=== PATIENT | male | born 2000 | race Caucasian/White ===

== ENCOUNTER 2020-10-27 16:15 | Emergency (ER) | payer BC, SELFPAY ==
--- NOTE | ~2020-10-27 | XR_ITS ---
EXAMINATION: XR ANKLE, RIGHT CLINICAL INFORMATION: Swelling COMPARISON: None TECHNIQUE: 3 views of the right ankle. FINDINGS: There is soft tissue swelling at the lateral malleolus. There is no fracture. No dislocation. The ankle mortise is congruent. XR/XR ankle RT min 3V IMPRESSION: Soft tissue swelling at lateral malleolus. There is no acute osseous abnormality.
[2020-10-27 16:26] VITALS: BP 139/78; PULSE 90; RESP 18; TEMP 36.3; O2SAT 98; BMI 28.5
--- NOTE | 2020-10-27 18:11 | ED_ITS ---
HPI - Extremity Injury (Lower) General Chief Complaint: Extremity Injury, Lower Stated Complaint: ankle injury Source: patient Mode of arrival: ambulatory Limitations: no limitations History of Present Illness HPI Narrative: Patient presents to ED right ankle pain since this morning. Patient states he was going down the stairs this morning and on the last step he lost his footing and rolled his right ankle. Patient denies falling to the ground. Patient denies hearing any popping sounds in ankle/foot. Patient denies any foot pain. Patient states pain is only in the right lateral side of ankle. Related Data Previous Rx's Medication Instructions Recorded cyclobenzaprine 10 mg PO TID PRN #15 tab 10/27/20 naproxen 500 mg PO BID PRN #20 tab 10/27/20 Allergies Allergy/AdvReac Type Severity Reaction Status Date / Time No Known Allergies Allergy Verified 10/27/20 16:26 [No Known Allergies*] Review of Systems Review of Systems: Yes all other systems are reviewed and are negative Constitutional: Constitutional: Reports as per HPI and Reports no additional constitutional complaints Eyes: Eyes: Reports as per HPI and Reports no additional eye complaints ENT: Reports system reviewed and no additional complaints, except as documented and Reports as per HPI Cardiovascular: Cardiovascular: Reports as per HPI and Reports no additional cardiovascular complaints Respiratory: Respiratory: Reports as per HPI and Reports no additional respiratory complaints Gastrointestinal: Gastrointestinal: Reports as per HPI and Reports no additional gastrointestinal complaints Genitourinary: Genitourinary: Reports no additional male genitourinary complaints and Reports as per HPI Musculoskeletal: Musculoskeletal: Reports no additional musculoskeletal complaints, Reports as per HPI and Reports arthralgias Comments: Right ankle Neurologic: Reports system reviewed and no additional complaints, except as documented and Reports as per HPI Psychiatric: Psychiatric: Reports no additional psychiatric complaints and Reports as per HPI [facility] Past Medical History Medical History (Updated 10/27/20 @ 18:28 by LIANET Miranda) Patient denies medical problems Family History Family History (Updated 08/06/20 @ 11:49 by Rei Whitlock PA-C) Father DMII (diabetes mellitus, type 2) Social History Social History (Updated 08/06/20 @ 11:50 by Rei Whitlock PA-C) Alcohol intake: current Smoking Status: Former smoker Advance Directives: No Advance Directives Information Provided: Yes Physical Exam Vital Signs: Vital Signs: Last Vital Signs Temp 97.3 F 10/27/20 16:26 Pulse 90 10/27/20 16:26 Resp 18 10/27/20 16:26 BP 139/78 10/27/20 16:26 Pulse Ox 98 10/27/20 16:26 Body Mass Index 28.5 Const: General: cooperative, healthy appearing, comfortable, no acute distress, well developed, alert, awake and Physically active Orientation/consciousness: patient oriented x3 HENMT: Head: Yes normal to inspection, Yes No palpable skull fracture present, Yes normocephalic, Yes atraumatic and No abrasion Eyes: General: appearance normal, both eyes and all related structures Neck: Neck: Yes normal visual inspection, Yes full ROM, Yes no lymphadenopathy, Yes no meningeal signs, Yes trachea midline, Yes supple and No tender Chest: Chest palpation & inspection: normal inspection of the chest and normal palpation of entire chest wall Resp: Effort & Inspection: normal respiratory effort and able to speak in complete sentences Auscultation: clear to auscultation bilaterally Cardio: Jugular venous distension: no JVD Heart sounds: S1 normal heart sound present and S2 normal heart sound present GI: Inspection: Yes normal to inspection and No abdominal wall ecchymosis Palpation (GI): Soft to palpation, not firm, nontender, no guarding and not rigid : General: No CVA tenderness and Yes no CVA tenderness Back/Spine/Pelvis: Back: no CVA tenderness, No CVA tenderness and No back tenderness Skin: General skin exam: no rashes or lesions noted and elasticity normal Neuro: General: patient oriented x3, no meningeal signs and CN's II-XI intact bilaterally Cranial nerves: Yes CN's II-XII intact bilaterally Extrem: Other: Right lower extremity: Negative for any deformity/tenderness/crepitus/ecchymosis of right thigh/knee/leg/foot. Positive for tenderness and slight swelling on right lateral malleolus. Negative for any redness or feet. Palpable pulses of feet. Left lower extremity normal. All extremities motor/neuro/vascular exam intact. Patient has normal gait Psych: Appearance: grossly normal, well kempt and not disheveled Course Course Course Narrative: Patient has normal gait and not any distress. Patient ordered for right x-ray per triage nurse. Reevaluation(s) Reevaluation #1: right ankle x-ray negative for any fracture. No foot x-ray was ordered. Patient does not have any right foot pain, crepitus, tenderness, ecchymosis, or deformities. Time: 18:27 MDM - Extremity Injury (Lower) MDM Narrative Medical decision making narrative: Ankle sprain Discharge Plan Discharge Clinical Impression: Ankle sprain and strain Patient Disposition: Home, Self-Care Instructions: Ankle Sprain (ED) Additional Instructions: Return to the ED for worsening pain, swelling, redness, numbness/tingling, inability to walk, numbness, bluish black discoloration of lower extremity, chest pain, shortness of breath, or any other concerning symptoms. Prescriptions: New naproxen 500 mg tablet 500 mg PO BID PRN (Reason: pain) Qty: 20 RF: 0 cyclobenzaprine 10 mg tablet 10 mg PO TID PRN (Reason: pain) Qty: 15 RF: 0 Referrals: Rei Whitlock PA-C [Primary Care Provider] - 2 days (Right ankle sprain) Interventions: ED Discharge Assessment Last Done: 10/27/20 18:37 Discharge Date/Time: 10/27/20 18:39 Print Language: Par[place]ayan
== END 2020-10-27 18:39 | disposition home or self-care (01) ==
PROVIDERS: Emergency Provider Emergency Medicine; PCP Physician Assistant
DX: S93.401A Sprain of unspecified ligament of right ankle, initial encounter (principal); M25.571 Pain in right ankle and joints of right foot; W10.9XXA Fall (on) (from) unspecified stairs and steps, initial encounter; Y93.9 Activity, unspecified; Y92.9 Unspecified place or not applicable; Y99.9 Unspecified external cause status; Z79.899 Other long term (current) drug therapy; Z87.891 Personal history of nicotine dependence
CPT/HCPCS: 73610; 99283

== ENCOUNTER 2022-09-03 03:50 | Inpatient (IN) | payer OTHER, SELFPAY ==
[2022-09-03] VITALS (14 sets, daily range): BP systolic 100–138; BP diastolic 47–83; PULSE 46–83; RESP 15–18; TEMP 36.1–36.8; O2SAT 95–100; BMI 27.8
--- NOTE | ~2022-09-03 | CT_ITS ---
EXAMINATION: CT ABDOMEN AND PELVIS WITHOUT CONTRAST CLINICAL INFORMATION: Left flank pain COMPARISON: None TECHNIQUE: Multidetector volumetric imaging was performed from the superior aspect of the liver through the pubic symphysis. Sagittal and coronal reformatted images were obtained on the technologist's workstation. This CT examination was performed using dose optimization techniques as appropriate, variously including the following: *Automated exposure control *Adjustment of mA and/or kV according to patient size (this includes techniques or standardized protocols for targeted exams where dose is matched to indication/reason for exam; i.e. extremities or head) *Use of iterative reconstruction technique DLP: 634 mGy-cm FINDINGS: LUNG BASES: The visualized lung bases are unremarkable. LIVER, GALLBLADDER, AND BILIARY TREE: The liver is normal in size, shape, and attenuation. No focal hepatic lesion or biliary ductal dilatation is present. The gallbladder is unremarkable with no evidence of radiopaque gallstones, gallbladder wall thickening, or obvious pericholecystic inflammatory changes. PANCREAS: Unremarkable. SPLEEN: Unremarkable. ADRENAL GLANDS: Unremarkable. KIDNEYS AND URETERS: The kidneys are normal in size, shape, and attenuation. Mild left hydroureteronephrosis. Ovoid 0.8 cm calculus measuring 993 Hounsfield units is seen at the mid to distal ureter at the pelvic inlet. Nonobstructing 0.2 cm left mid to upper pole calculus is 8 cm from the posterior axillary line. BLADDER: Partially distended without wall thickening. GASTROINTESTINAL TRACT: The stomach is unremarkable. Normal caliber small bowel. No obstruction. No colonic wall thickening or inflammation. Normal appendix. No free air or free fluid. ABDOMINAL WALL: No significant hernia is appreciated. LYMPH NODES: Normal. VASCULAR: Normal caliber aorta. Retroaortic left renal vein. PELVIC VISCERA: The prostate and seminal vesicles are unremarkable. OSSEOUS STRUCTURES: No acute or suspicious osseous abnormality. Transitional anatomy at the lumbosacral junction. CT/CT abdomen pelvis wo IV con IMPRESSION: Mild left hydroureteronephrosis with a 0.8 cm calculus at the mid to distal ureter. Fleischner guidelines were followed.
--- NOTE | 2022-09-03 04:19 | ED_ITS ---
HPI - Male Genitourinary General Chief complaint: Urogenital-Male Stated complaint: Flank pain/Testicle pain Time Seen by Provider: 09/03/22 04:18 Source: patient Mode of arrival: ambulatory Limitations: no limitations History of Present Illness HPI Narrative: Patient's history of kidney stone last time had stone was 2 years ago without any intervention patient passed the stone comes here today with acute onset of pain left flank area radiating to the left testicle no nausea no vomiting no fever no hematuria no urinary symptoms Related Data Previous Rx's Medication Instructions Recorded cyclobenzaprine 10 mg tablet 10 mg PO TID PRN pain #15 tabs 10/27/20 naproxen 500 mg tablet 500 mg PO BID PRN pain #20 tabs 10/27/20 Allergies Allergy/AdvReac Type Severity Reaction Status Date / Time No Known Allergies Allergy Verified 10/27/20 16:26 [No Known Allergies*] Review of Systems Review of Systems: Yes all other systems are reviewed and are negative [facility] Past Medical History Medical History Patient denies medical problems Family History Family History Father DMII (diabetes mellitus, type 2) Social History Social History Alcohol intake: current Advance Directives: No Advance Directives Information Provided: No Physical Exam Vital Signs: Vital Signs: Last Vital Signs Temp 98.2 F 09/03/22 04:03 Pulse 80 09/03/22 05:49 Resp 18 09/03/22 05:49 BP 120/74 09/03/22 05:49 Pulse Ox 100 09/03/22 04:03 O2 Del Method 09/03/22 04:03 BMI result Body Mass Index 27.8 Appearance: Alert. Oriented X3. In moderate distress Eyes: No pallor or icterus ENT: Pharynx normal. Oral Mucosa moist Neck: Normal inspection. Neck supple. CVS: Normal heart rate and rhythm. Pulses normal. Respiratory: No respiratory distress. Equal air entry bilateral, no wheezing/rales/rhonchi Abdomen: Soft and nontender. Bowel sounds are present, no mass palpable, left CVA tenderness Skin: Skin warm and dry. Normal skin color. Normal skin turgor. Extremities: No lower extremity edema. No calf tenderness Neuro: Oriented X 3. No motor deficit. Medications Administered Discontinued Medications Generic Name Dose Route Start Last Admin Trade Name Justine PRN Reason Stop Dose Admin Sodium Chloride 1,000 mls @ 999 mls/hr 09/03/22 04:22 09/03/22 04:50 Ns IV 09/03/22 05:22 999 mls/hr .Q1H1M ONE Administration Ketorolac Tromethamine 30 mg 09/03/22 04:22 09/03/22 05:05 Ketorolac Tromethamine 30 Mg/Ml Vial IVPUSH 09/03/22 04:23 30 mg ONCE ONE Administration Morphine Sulfate 4 mg 09/03/22 04:22 09/03/22 04:56 Morphine Sulfate 4 Mg/Ml Cartridge IVPUSH 09/03/22 04:23 4 mg ONCE ONE Administration Protocol Ondansetron HCl 4 mg 09/03/22 04:22 09/03/22 04:53 Ondansetron Hcl 4 Mg/2 Ml Vial IVPUSH 09/03/22 04:23 4 mg ONCE ONE Administration Medical Decision Making Medical Decision Making [facility] Narrative: Patient with left ureteral stone 0.8 cm with moderate hydronephrosis likely will not pass patient continued to have intermittent pain will admit patient for urology to see Lab Data [facility] Lab Attestation statement: I reviewed the patient's lab results. 09/03/22 04:16 09/03/22 04:16 Labs: Lab Results 09/03/22 09/03/22 09/03/22 Range/Units 04:16 04:16 05:11 WBC 12.7 H (4.8-10.8) X10*3/uL RBC 5.17 (4.60-5.80) X10*6/uL Hgb 15.9 (14.0-18.0) g/dl Hct 45.8 (42.0-52.0) % MCV 88.6 (80.0-98.0) fL MCH 30.8 (27.0-33.0) pg MCHC 34.7 (31.0-36.0) g/dl RDW 12.1 (11.0-16.0) % Plt Count 252 (160-400) X10*3/uL MPV 9.8 (9.4-12.4) fL Immature Gran % (Auto) 0.2 (0.0-0.4) % Neut % (Auto) 72.0 (45-73) % Lymph % (Auto) 16.0 L (20-40) % [place] % (Auto) 8.0 (2-11) % Eos % (Auto) 3.2 (0-4) % Baso % (Auto) 0.6 (0-2) % Lymph # (Auto) 2.0 (1.2-4.9) X10*3/uL [place] # (Auto) 1.0 (0.1-1.2) X10*3/uL Eos # (Auto) 0.4 (0.0-0.4) X10*3/uL Baso # (Auto) 0.1 (0.0-0.2) X10*3/uL Abs Immat Gran (auto) 0.03 (0.00-0.03) X10*3/uL Absolute Neuts (auto) 9.2 H (2.0-8.3) x10*3/uL Absolute Nucleated RBC 0.000 (0.0-0.012) X10*3/uL Nucleated RBC % (auto) 0.0 (0.0-0.2) /100WBC Sodium 139 (135-145) mmol/L Potassium 3.9 (3.3-5.1) mmol/L Chloride 104 (96-108) mmol/L Carbon Dioxide 23 (22-29) mmol/L Anion Gap 16 (12-20) BUN 10 (9-16) mg/dL Creatinine 1.00 (0.5-1.4) mg/dL Estim Creat Clear Calc 125.0 Estimated GFR > 60 Random Glucose 105 (60-115) mg/dL Calcium 9.5 (8.4-10.2) mg/dL Urine Color Straw Urine Appearance Cloudy Urine pH 6.0 (5.0-9.0) Ur Specific [place] >= 1.030 H (1.005-1.025) Urine Protein 100 (2+) H (Neg-Trace) mg/dL Urine Glucose (UA) Negative (Negative) mg/dL Urine Ketones Trace (Negative) mg/dL Urine Blood Large (3+) H (Negative) Urine Nitrite Negative (Negative) Ur Leukocyte Esterase Negative (Negative) Urine RBC >20 H (0-2) /HPF Urine WBC 6-10 (0-5) /HPF Ur Squamous Epith Cells 0-2 (0-2) /HPF Calcium Oxalate Crystal Present Urine Bacteria Trace (None Seen) Hyaline Casts 0-2 (0-2) /LPF Radiology Impression Discussion of test interpretation with radiology: I have reviewed the radiologist's reading. Radiologist Impression: CT/CT abdomen pelvis wo IV con IMPRESSION: Mild left hydroureteronephrosis with a 0.8 cm calculus at the mid to distal ureter. ? Discharge Plan Discharge Clinical Impression: Hydronephrosis with urinary obstruction due to ureteral calculus Patient Disposition: Admitted As Inpatient
[2022-09-03 04:20] LABS: MANUAL DIFF FLAG NO
[2022-09-03 04:21] LABS: Basophils Absolute Auto 0.1 X10*3/uL (0.0-0.2); Basophils Percent Auto 0.6 % (0-2); Eosinophils Absolute Auto 0.4 X10*3/uL (0.0-0.4); Eosinophils Percent Auto 3.2 % (0-4); Hematocrit 45.8 % (42.0-52.0); Hemoglobin 15.9 g/dl (14.0-18.0); Imm Gran Abs Auto 0.03 X10*3/uL (0.00-0.03); Imm Gran Pct Auto 0.2 % (0.0-0.4); Mean Corpuscular HGB Conc 34.7 g/dl (31.0-36.0); Mean Corpuscular Hemoglobin 30.8 pg (27.0-33.0); Mean Corpuscular Volume 88.6 fL (80.0-98.0); Mean Platelet Volume 9.8 fL (9.4-12.4); Neutrophils Absolute Auto 9.2 x10*3/uL (2.0-8.3); Platelet Count 252 X10*3/uL (160-400); Red Blood Count 5.17 X10*6/uL (4.60-5.80); Red Cell Distribution Width 12.1 % (11.0-16.0); White Blood Count 12.7 X10*3/uL (4.8-10.8)
[2022-09-03 04:46] LABS: Anion Gap 16 (12-20); Blood Urea Nitrogen 10 mg/dL (9-16); Calcium 9.5 mg/dL (8.4-10.2); Carbon Dioxide 23 mmol/L (22-29); Chloride 104 mmol/L (96-108); Estimated Glomerular Filt Rate > 60; Glucose Random 105 mg/dL (60-115); Potassium 3.9 mmol/L (3.3-5.1); Sodium 139 mmol/L (135-145)
[2022-09-03] MEDS: 0.9 % Sodium Chloride 1,000 ML 999 ML IV (04:50)
[2022-09-03] MEDS: ondansetron HCL 4 MG/2 ML VIAL IVPUSH (04:53)
[2022-09-03] MEDS: Morphine Sulfate 4 MG/ML CARTRIDGE IVPUSH (04:56)
[2022-09-03] MEDS: Ketorolac Tromethamine 30 MG/ML VIAL IVPUSH (05:05)
[2022-09-03 05:17] LABS: Appearance Urine Cloudy; Color Urine Straw; Glucose Urine UA Negative (Negative); Leukocyte Esterase Urine Negative (Negative); Nitrite Urine Negative (Negative); Specific Gravity - Urine >= 1.030 (1.005-1.025); UMIC TRIGGER UACC YES; Urine Blood Large (3+) (Negative); Urine Ketones Trace mg/dL (Negative); Urine Protein 100 (2+) mg/dL (Neg-Trace)
[2022-09-03 05:38] LABS: Bacteria Urine Trace (None Seen); Calcium Oxalate Crystals Urine Present; Hyaline Casts Urine 0-2 /LPF (0-2); RBC Urine >20 /HPF (0-2); Squamous Epithelial Cell Urine 0-2 /HPF (0-2); UACC Culture Trigger YES
--- NOTE | 2022-09-03 06:00 | MHC.EDTECH ---
0600 ROUNDING DONE ,VITALS SIGN TAKEN AND COVID SWAB DONE AND SEND TO LAB ,PATIENT WAS OFFER A BLANKET ,BUT HE SAID NO HE WAS ALLSET ,PILLOW GIVEN .
--- NOTE | 2022-09-03 06:05 | P.HPHOSP_ITS ---
History of Present Illness Date of Service: 09/03/22 Chief Complaint: Left flank pain This is a 22-year-old male with no pertinent past medical history and not on prescription medications who presents to the emergency department for evaluation of left flank pain. Patient states it started on the day of presentation. He had sharp intense pain of the left flank which radiated down to his testicles. It is constant, progressive and without any relieving factors. Patient does have a history of kidney stones and states it is feels similar to the pain of kidney stones that he has experienced before. Also complains of associated hematuria and nausea. He denies fever, chills, chest discomfort, palpitations, shortness of breath, changes in bowel habits. In the emergency department, imaging with left hydroureteronephrosis with 0.8 cm calculus at mid to distal ureter. Review of Systems Constitutional: Constitutional: Reports no additional constitutional complaints Cardiovascular: Cardiovascular: Reports no additional cardiovascular complaints Respiratory: Respiratory: Reports no additional respiratory complaints Gastrointestinal: Gastrointestinal: Reports nausea Genitourinary: Genitourinary: Reports hematuria and Reports flank pain [facility] Medical History Patient denies medical problems Functional capacity: independent ambulation Family History Father DMII (diabetes mellitus, type 2) Pertinent family history: Grandmother with diabetes mellitus Social History Alcohol intake: current Advance Directives: No Advance Directives Information Provided: No Meds Allergies Allergy/AdvReac Type Severity Reaction Status Date / Time No Known Allergies Allergy Verified 10/27/20 16:26 [No Known Allergies*] Physical Exam Vital Signs and Narrative: Vital Signs: Last Vital Signs Temp 98.2 F 09/03/22 04:03 Pulse 80 09/03/22 05:49 Resp 18 09/03/22 05:49 BP 120/74 09/03/22 05:49 Pulse Ox 100 09/03/22 04:03 O2 Del Method 09/03/22 04:03 BMI result Body Mass Index 27.8 Young male lying in bed in no distress Neck supple, no JVD Regular rate and rhythm, S1-S2 heard Regular breath sounds bilaterally, no wheezing or crackles appreciated Left-sided CVA tenderness present Patient is awake, alert and oriented to self, place, time and person ; no focal motor deficit Psych: Normal mood No pedal edema Results Labs 09/03/22 04:16 09/03/22 04:16 Labs: Laboratory Results - last 24 hr 09/03/22 09/03/22 09/03/22 04:16 04:16 05:11 MCV 88.6 MCH 30.8 MCHC 34.7 RDW 12.1 Plt Count 252 MPV 9.8 Immature Gran % (Auto) 0.2 Neut % (Auto) 72.0 Lymph % (Auto) 16.0 L [place] % (Auto) 8.0 Eos % (Auto) 3.2 Baso % (Auto) 0.6 Lymph # (Auto) 2.0 [place] # (Auto) 1.0 Eos # (Auto) 0.4 Baso # (Auto) 0.1 Abs Immat Gran (auto) 0.03 Absolute Neuts (auto) 9.2 H Absolute Nucleated RBC 0.000 Nucleated RBC % (auto) 0.0 Anion Gap 16 Estim Creat Clear Calc 125.0 Estimated GFR > 60 Random Glucose 105 Calcium 9.5 Urine Color Straw Urine Appearance Cloudy Urine pH 6.0 Ur Specific [place] >= 1.030 H Urine Protein 100 (2+) H Urine Glucose (UA) Negative Urine Ketones Trace Urine Blood Large (3+) H Urine Nitrite Negative Ur Leukocyte Esterase Negative Urine RBC >20 H Urine WBC 6-10 Ur Squamous Epith Cells 0-2 Calcium Oxalate Crystal Present Urine Bacteria Trace Hyaline Casts 0-2 Imaging Radiologist's Impressions: Impressions Abdomen/Pelvis CT 09/03/22 05:15 IMPRESSION: Mild left hydroureteronephrosis with a 0.8 cm calculus at the mid to distal ureter. Fleischner guidelines were followed. Assessment and Plan (1) Hydronephrosis with urinary obstruction due to ureteral calculus: Status: Acute Plan This is a 32-year-old female with pertinent history of essential hypertension, peripheral neuropathy, mood disorder, history of alcohol use disorder (last consumed alcohol 6 months ago) who presents to the emergency department for evaluation of hematemesis. #. Left hydronephrosis due to calculus at mid to distal ureter with clinical pyelonephritis: Patient resuscitated with IV crystalloids in the ER. Received 0.4 mg Flomax. Symptomatic control with analgesics p.r.n.. Consulting Urology, appreciate assistance. Will keep NPO. Empiric Rocephin #. Hematuria due to above DVT prophylaxis: None NPO Full code Will admit as inpatient for possible urologic intervention Time Spent With Patient Time: Total time managing care of this patient today ____ minutes. Quality Stroke Does the patient have a stroke diagnosis?: No VTE Prior VTE?: No VTE Risk Level:: Medical - low VTE Device Contraindication: Treatment Not Indicated VTE Drug Contraindication: Treatment Not Indicated
[2022-09-03 06:40] LABS: COVID-19 Test Negative (Negative); IDNOW Serial# BCCEAD1C
[2022-09-03] MEDS: Tamsulosin HCL 0.4 MG CAPSULE PO (06:47)
[2022-09-03] MEDS: cefTRIAXone sodium 1 GM in 0.9 % Sodium Chloride 50 ML IV (07:07)
--- NOTE | 2022-09-03 08:14 | PHA.MEDREC ---
Pharmacy Consult ? Medication Reconciliation Pharmacy has completed the medication reconciliation. Saw in patient report that patient states no home meds. Confirmed this with patient that there are no prescription or OTC medications taken on daily basis.
--- NOTE | 2022-09-03 10:29 | PM.EVENT ---
Event Note Date of Service: 09/03/22 Event Note: Patient admitted this morning for left flank pain associated with nausea and hematuria, CT abdomen and pelvis showed mild left hydroureteronephrosis with 0.8 cm calculus at the mid to distal ureter, WBC 12.7, normal renal function, patient treated in the emergency room with IV morphine, IV Toradol, IV ceftriaxone and IV fluid at present patient is feeling better denies pain, no further bout of nausea, vomiting, is NPO and waiting for Urology. Left hydronephrosis due to 0.8 cm ureteral stone continue current treatment, await Urology input. Time Spent With Patient Time: Total time managing care of this patient today ____ minutes.
--- NOTE | 2022-09-03 12:04 | P.CNUR_ITS ---
History of Present Illness Consult details Consult date: 09/03/22 Narrative: CC: distal left ureteric stone with proximal hydroureteronephrosis 22-year-old male Presents with left-sided flank pain radiating to left testicle Creatinine 1.08, WBC 12.7 Imaging - Mild left hydroureteronephrosis. Ovoid 0.8 cm calculus measuring 993 Hounsfield units is seen at the mid to distal ureter at the pelvic inlet. had previously passed stone no prior intervention recommend cystoscopy, left retrograde, left stent placement Review of Systems 2 Constitutional: Constitutional: Reports as per HPI and Reports no additional constitutional complaints Cardiovascular: Cardiovascular: Reports as per HPI and Reports no additional cardiovascular complaints Respiratory: Respiratory: Reports as per HPI and Reports no additional respiratory complaints Gastrointestinal: Gastrointestinal: Reports as per HPI and Reports no additional gastrointestinal complaints Genitourinary: Genitourinary: Reports as per HPI Musculoskeletal: Musculoskeletal: Reports no additional musculoskeletal complaints and Reports as per HPI Neurologic: Reports system reviewed and no additional complaints, except as documented and Reports as per HPI [facility] Past Medical History Medical History Patient denies medical problems Functional capacity: independent ambulation Family History Family History Father DMII (diabetes mellitus, type 2) Social History Social History Household Members: Family Housing: House Do you presently have visiting nurse or other home services: No Alcohol intake: current Patient Tobacco Use Status: Never used Tobacco Meds Allergies Allergy/AdvReac Type Severity Reaction Status Date / Time No Known Allergies Allergy Verified 10/27/20 16:26 [No Known Allergies*] Active Medications: Current Medications Acetaminophen (Acetaminophen 325 Mg Tablet) 650 mg PO Q6H PRN PRN Reason: Pain, Mild (Pain Scale 1-3) Levofloxacin (Levaquin) 500 mg in 100 mls @ 100 mls/hr IV PREOP ONE Stop: 09/03/22 12:48 Ketorolac Tromethamine (Ketorolac Tromethamine 30 Mg/Ml Vial) 30 mg IVPUSH Q6H PRN PRN Reason: Pain, Mild (Pain Scale 1-3) Stop: 09/08/22 06:02 Melatonin (Melatonin 3 Mg Tablet) 6 mg PO BEDTIME PRN PRN Reason: Insomnia Morphine Sulfate (Morphine Sulfate 4 Mg/Ml Cartridge) 4 mg IVPUSH Q4H PRN; Protocol PRN Reason: Pain, Severe (Pain Scale 7-10) Ondansetron HCl (Ondansetron Hcl 4 Mg/2 Ml Vial) 4 mg IVPUSH Q8H PRN PRN Reason: Nausea and Vomiting Pharmacy Consult (Consult Rx Perform Med Rec) 1 each MISCELLANE ONCE PRN PRN Reason: Consult order Sodium Chloride (0.9 % Sodium Chloride Flush 3 Ml Syringe) 3 ml IVFLUSH QSHIFT CHARLY Last Admin: 09/03/22 08:21 Dose: Not Given Home Medications Medication Instructions Recorded Confirmed Last Taken Type No Known Home Meds 09/03/22 09/03/22 Unknown History Physical Exam Vital Signs: Vital Signs: Last Vital Signs Temp 97.7 F 09/03/22 10:04 Pulse 46 L 09/03/22 10:04 Resp 16 09/03/22 10:04 BP 119/61 09/03/22 10:04 Pulse Ox 98 09/03/22 10:04 O2 Del Method 09/03/22 10:04 BMI result Body Mass Index 27.8 Const: General: cooperative, healthy appearing, comfortable and no acute distress Orientation/consciousness: patient oriented x3 HEENT: Face and sinus: Yes normal facial exam Mouth: moist mucous membranes Neck: Neck: Yes normal visual inspection, Yes full ROM and Yes trachea midline Chest: Chest palpation & inspection: normal inspection of the chest Resp: Effort & Inspection: normal respiratory effort, able to speak in complete sentences and no respiratory distress GI: Inspection: Yes normal to inspection Back/Spine/Pelvis: Cervical Spine: normal cervical lordosis Thoracic/Lumbar Spine: thoracic and lumbar spine normal to inspection Skin: General skin exam: no rashes or lesions noted Neuro: General: patient oriented x3, tone normal and moves all extremities Extrem: General: Yes normal to inspection and Yes capillary refill normal Results Labs 09/03/22 04:16 09/03/22 04:16 Labs: Abnormal lab results 09/03/22 09/03/22 Range/Units 04:16 05:11 WBC 12.7 H (4.8-10.8) X10*3/uL Lymph % (Auto) 16.0 L (20-40) % Absolute Neuts (auto) 9.2 H (2.0-8.3) x10*3/uL Ur Specific [place] >= 1.030 H (1.005-1.025) Urine Protein 100 (2+) H (Neg-Trace) mg/dL Urine Blood Large (3+) H (Negative) Urine RBC >20 H (0-2) /HPF Short CBC 09/03/22 Range/Units 04:16 WBC 12.7 H (4.8-10.8) X10*3/uL Hgb 15.9 (14.0-18.0) g/dl Hct 45.8 (42.0-52.0) % Plt Count 252 (160-400) X10*3/uL BMP 09/03/22 04:16 Sodium 139 Potassium 3.9 Chloride 104 Carbon Dioxide 23 BUN 10 Creatinine 1.00 Calcium 9.5 Urine 09/03/22 Range/Units 05:11 Urine Color Straw Urine Appearance Cloudy Urine pH 6.0 (5.0-9.0) Ur Specific [place] >= 1.030 H (1.005-1.025) Urine Protein 100 (2+) H (Neg-Trace) mg/dL Urine Glucose (UA) Negative (Negative) mg/dL All other labs normal. Assessment and Plan (1) Hydronephrosis with urinary obstruction due to ureteral calculus: Status: Acute Plan Risks, benefits and alternatives to therapy were discussed. These include but are not limited to infection, bleeding, damage to local organs and tissues, need for further interventions. Anesthetic risks regarding cardiac arrhythmia, blood clots, and potential mortality were discussed. The patient understands the typical recovery time and the outpatient nature of the procedure. After consideration of these risks the patient gives full informed consent and they wish to move ahead with the procedure. cystoscopy, left retrograde, with stent placement Time Spent With Patient Time: Total time managing care of this patient today ____ minutes. Procedures Date of Service Date of Service: 09/03/22
--- NOTE | 2022-09-03 12:06 | MHC.CM.PN ---
PT REPORTS HE LIVES WITH FAMILY AND IS INDEPENDENT WITH CARE PT DENIES USE OF DME OR HOME SERVICES PT IS NOT COVID [place] PT COMPLETED A HPC TODAY NAMING HIS PARENTS HIS AGENTS PCP: [facility] DCP: HOME NO SERVICES FAMILY TO TRANSPORT
--- NOTE | 2022-09-03 13:41 | W.PM.OPN ---
Operative Note Operative Note Date of Service: 09/03/22 Narrative: PreOperative Diagnosis: distal left ureteric stone with hydroureteronephrosis Post Operative Diagnosis: distal left ureteric stone with hydroureteronephrosis Procedure: cystoscopy, left retrograde, left stent placement Surgeon: Dr Tushar Ramirez Anesthesia: per protocol Indications for procedure: 8 mm obstructing stone at iliac vessels left side Procedure: After informed consent was verified the patient was brought to the operating room and placed in a supine position. Anesthesia was administered per protocol. The patient was placed in modified dorsal lithotomy position and prepped and draped in a sterile fashion. A safety pause time-out was performed. Laterality of procedure and antibiotics were confirmed, appropriate imaging was available A 22 Chinese cystoscope was introduced per urethra. No abnormality was noted of urethra or bladder. Both ureteric orifices were seen in a normal position. The left ureter was cannulated with an open ended catheter and a retrograde examination was performed. filling defects seen at junction between the mid and distal portion of the ureter. . A Sensor guidewire was placed under fluoroscopy and a good coil was seen within the renal pelvis. A Six Chinese by variable length double J stent was advanced over the wire and up to the level of the renal pelvis under fluoroscopic and direct visualization. The stent was seen with appropriate coil within the renal pelvis and in the bladder after deployment. The patient tolerated the procedure well and was transferred in a stable condition to the recovery area. Pathology: none Drains: stent as above
[2022-09-03] MEDS: Phenazopyridine HCL 100 MG TABLET PO (14:16)
[2022-09-03] MEDS: Acetaminophen 325 MG TABLET 650 MG PO (14:16)
[2022-09-03] MEDS: 0.9 % Sodium Chloride Flush 3 ML SYRINGE IVFLUSH (19:22)
[2022-09-04 03:41] VITALS: BP 126/68; PULSE 48; RESP 18; TEMP 36.6; O2SAT 98
[2022-09-04 06:04] LABS: Hematocrit 46.5 % (42.0-52.0); Hemoglobin 15.6 g/dl (14.0-18.0); Mean Corpuscular HGB Conc 33.5 g/dl (31.0-36.0); Mean Corpuscular Hemoglobin 30.8 pg (27.0-33.0); Mean Corpuscular Volume 91.9 fL (80.0-98.0); Mean Platelet Volume 10.6 fL (9.4-12.4); Platelet Count 246 X10*3/uL (160-400); Red Blood Count 5.06 X10*6/uL (4.60-5.80); Red Cell Distribution Width 12.1 % (11.0-16.0); White Blood Count 13.2 X10*3/uL (4.8-10.8)
[2022-09-04 08:00] VITALS: BP 122/71; PULSE 58; RESP 17; TEMP 36.4; O2SAT 98
--- NOTE | 2022-09-04 08:59 | HO.POSTANES ---
Post Anesthesia Evaluation Post Anesthesia Evaluation Vital Signs: Vital Signs Temp Pulse Resp BP Pulse Ox O2 Del Method 09/04/22 08:00 97.6 F 58 17 122/71 98 Room Air 09/04/22 03:41 98 F 48 L 18 126/68 98 Room Air Anesthesia: General LMA Mental Status: Awake Pain Control: Satisfactory Nausea/Vomiting: None Hydration: Adequate Anesthesia-Related Issues: No Anes. Related Issues
--- NOTE | 2022-09-04 09:23 | PM.DS ---
DS: Providers Provider Date of Service: 09/04/22 Date of admission: 09/03/22 06:03 Date of discharge: 09/04/22 Primary care physician: Rei Whitlock PA-C Consults: 09/03/22 06:03 Consult to Urology Routine Consulting Provider: Tushar Ramirez Reason for consultation: left hydroureteronephrosis with calculus DS: Diagnosis Discharge Diagnosis (1) Hydronephrosis with urinary obstruction due to ureteral calculus: Status: Acute DS: Summary Hospital Course Hospital Course: 22-year-old male with no pertinent past medical history admitted through the emergency department secondary to left flank pain. Workup consistent with left hydroureter nephrosis with 0.8 cm calculus at mid to distal ureter. On 09/03/2022 patient underwent cystoscopy, left retrograde, left stent placement without issue. He was afebrile overnight and this a.m. is without pain in wishing discharge. White count is minimally elevated; will empirically treat with a course of Levaquin and patient can follow-up with Dr. Ramirez as an outpatient Time Spent with Patient Time attestation: Total time managing care of this patient today ____ minutes. Discharge coordination time: Greater than 30 minutes Quality: Safe Use of Opioids Does Pt have an Active Cancer Diagnosis on the Problem List?: No Quality: Stroke Does the patient have a stroke diagnosis?: No Physical Exam Vital Signs: Vital Signs: Last Vital Signs Temp 97.6 F 09/04/22 08:00 Pulse 58 09/04/22 08:00 Resp 17 09/04/22 08:00 BP 122/71 09/04/22 08:00 Pulse Ox 98 09/04/22 08:00 O2 Del Method 09/04/22 08:00 O2 Flow Rate 8 09/03/22 13:50 BMI result Body Mass Index 27.8 Const: Other: Awake alert oriented x3 no acute distress Resp: Other: Clear to auscultation bilaterally no rales rhonchi or wheezes Cardio: Other: No S4; positive S1-S2; no S3 murmurs rubs or gallops GI: Other: Soft nontender nondistended with normoactive bowel sounds Extrem: Other: No edema bilaterally DS: Data Data Completed and Pending Labs on day of discharge: Laboratory Results - last 24 hr 09/04/22 05:25 WBC 13.2 H RBC 5.06 Hgb 15.6 Hct 46.5 MCV 91.9 MCH 30.8 MCHC 33.5 RDW 12.1 Plt Count 246 MPV 10.6 Absolute Nucleated RBC 0.000 Nucleated RBC % (auto) 0.0 Discharge Plan Discharge Anticipated Discharge Date/Time: 09/04/22 09:18 Patient Disposition: Home, Self-Care Discharge Diagnosis: Left ureteral calculus Referrals: Rei Whitlock PA-C [Primary Care Provider] - 1 Week Discharge Medications: New levofloxacin 500 mg tablet 500 mg PO DAILY 7 Days Qty: 7 0RF Discharge Orders: Discharge Order (Routine); Ordered 09/04/22 Ordered By: David Rodriguez Diet: Advance to usual diet Activity on Discharge: As tolerated Stand Alone Forms: Patient Portal Discharge page Care Plan Goals: Complete course of Levaquin 500 mg daily for 7 days Health Concerns: Contact Dr. Ramirez's office for follow-up visit 1-2 weeks Plan of Treatment: Drink plenty of fluids; 6-8 glasses per day Assessment: See discharge summary
--- NOTE | 2022-09-04 09:30 | MHC.CM.PN ---
PT TO DC HOME TODAY WITH NO SERVICES PT TO ARRANGE TRANSPORT
== END 2022-09-04 11:25 | disposition home or self-care (01) | DRG 661 ==
LOC: HO.ED 06:00 → HO.EDOVER 06:10 → HO.S3 08:17
PROVIDERS: Hospitalist; Urology; Admitting Provider Student in an Organized Health Care Education/Training Program; Emergency Provider Internal Medicine; PCP Physician Assistant; Visit Provider Hospitalist
PROC: 0T778DZ Dilation of Left Ureter with Intraluminal Device, Via Natural or Artificial Opening Endoscopic (ICD-10-PCS; CPT 52332; principal; 2022-09-03 13:00)
DX: N13.2 Hydronephrosis with renal and ureteral calculous obstruction (principal); R31.9 Hematuria, unspecified; Z20.822 Contact with and (suspected) exposure to COVID-19; Z87.442 Personal history of urinary calculi
CPT/HCPCS: 52332; 36415; 74176; 80048; 81001; 85025; 85027; 87086; 87635; 99285; C1758; C1769; C2617; J0696; J1100; J1885; J1956; J2270; J2405; J3010; Q9967

== ENCOUNTER 2022-09-19 13:07 | Day surgery (SDC) | payer OTHER, SELFPAY ==
--- NOTE | ~2022-09-19 | FL_ITS ---
EXAMINATION: FL FLUOROSCOPY WITH IMAGES CLINICAL INFORMATION: Left mid ureteral stone. COMPARISON: CT abdomen and pelvis 09/03/2022. TECHNIQUE: Fluoroscopy Supervised By: Dr. Tushar Ramirez Fluoroscopy Time: 23.0 seconds. Cumulative Dose: 4.59 mGy-cm Images: 2. FINDINGS: There are 2 digital images obtained through the midabdomen revealing contrast opacifying the lower proximal and lower distal ureter. The mid segment is not clearly opacified. The second image reveals a guidewire in place. Visualized bones are grossly unremarkable. FL/FL guidance in OR IMPRESSION: Fluoroscopy guidance was provided to referring physician for left mid ureteral stone.
[2022-09-19 13:28] VITALS: BP 132/69; PULSE 86; RESP 18; TEMP 36.7; O2SAT 97
[2022-09-19] MEDS: Lactated Ringers 1,000 ML 50 ML IVCONT (13:29)
[2022-09-19] MEDS: Acetaminophen 325 MG TABLET 975 MG PO (13:42)
[2022-09-19 13:43] VITALS: BMI 28.5
[2022-09-19] MEDS: Ketorolac Tromethamine 15 MG/ML VIAL IVPUSH (14:07)
--- NOTE | 2022-09-19 14:47 | HO.ANESPROP2 ---
HPI - Anesthesia Eval Consult details Narrative: 22 M for cystoscopy h/o Vaping PMFSH Active Problems Active Problems: All Active Problems (Updated 09/12/22 @ 00:00 by Background Dalily) Annual physical exam (Acute) Screening for diabetes mellitus (DM) (Acute) Screening for hypothyroidism (Acute) Former smoker (Acute) Past Medical History Medical History (Updated 09/12/22 @ 00:00 by Background Daemon) Patient denies medical problems Functional capacity: independent ambulation Family History Family History Father DMII (diabetes mellitus, type 2) Family history of problems with anesthesia: No Surgical History Surgical History (Updated 09/19/22 @ 13:49 by Baylee He RN) S/P cystoscopy with ureteral stent placement History of Problems with Anesthesia: No Social History Social History Household Members: Family Housing: House Do you presently have visiting nurse or other home services: No Alcohol intake: current Patient Tobacco Use Status: Never used Tobacco Are you DNR?: No Advance Directives: No Advance Directives Information Provided: Yes Nutrition Risks: No Nutritional Risk service: No Current occupational status: unemployed Meds Allergies Allergy/AdvReac Type Severity Reaction Status Date / Time No Known Allergies Allergy Verified 09/19/22 13:49 [No Known Allergies*] Active Medications: Current Medications Lactated Ringer's (Lr) 1,000 mls @ 50 mls/hr IVCONT .Q20H CHARLY Last Admin: 09/19/22 13:29 Dose: 50 mls/hr Exam Exam Date and Time: September 19, 2022 1447 Height,Weight and Vital Signs: Height 5 ft 11 in Weight 92.986 kg Last Vital Signs Temp 98.1 F 09/19/22 13:28 Pulse 86 09/19/22 13:28 Resp 18 09/19/22 13:28 BP 132/69 09/19/22 13:28 Pulse Ox 97 09/19/22 13:28 O2 Del Method 09/19/22 13:28 Airway Mallampati Class: III TM Dist: >3cm Neck ROM: Full Loose/Missing/Broken Teeth: Yes (Multiple chipped , poor dentition ) Heart: S1,S2 Lungs: b/l breath sounds Assessment and Plan Assessment Anesthesia Assessment: Anesthesia Plan Discussed and Chart Reviewed Final Anesthetic Review Family History of Problems with Anesthesia: No History of Problems with Anesthesia: No NPO: Yes ASA Class: II Final Preanesthetic Review: Meds/Allgs Chart Reviewed, Consent Obtained/Reviewed and Anes Risks/Benef Reviewed Patient Risk: Intermediate Procedure Risk: Intermediate Anesthetic Plan Anesthetic Plan: GA Disposition: Standard PACU
--- NOTE | 2022-09-19 15:11 | MHC.SHP ---
Pre-Procedural Eval Section A Date of Service: 09/19/22 The patient is an INPATIENT: No Changes since office visit: No Cold of Flu in the past 2 weeks, No New Medical Problems, No Changes in Medication and No Patient answered all questions The History & Physical has been completed within 30 days and I have reviewed it.: Yes Section B Chief Complaint: Calculus of kidney Details of Present Illness: distal left ureteric calculus. Stent has been placed. Here for completion procedure. Relevant Family History (Specify if Yes): No Relevant Social History: None Present Medications: see Short Stay Collaborative assessment Medical History: No relevant PMH History of Previous Operations: Relevant previous surgery/procedure and date(s) Allergies: Allergies Allergy/AdvReac Type Severity Reaction Status Date / Time No Known Allergies Allergy Verified 09/19/22 13:49 [No Known Allergies*] Review of Systems Sugical H&P ROS: Negative: Constitution, Cardiovascular, Respiratory, Neurological, Psychiatric, Hem-Onc, Allergic/Immunologic, Gastrointestinal, Genitourinary, Musculoskeletal, Integumentary, Endocrine and Eyes/Ears/Nose/Throat Exam Surgical H&P Exam: Normal: HEENT, Normal: Heart, Normal: Lungs, Normal: Extremities, Normal: Abdomen, Normal: Skin and Normal: Neurological Plan Diagnosis/Plan: Unchanged ( Cystoscopy, left stent removal, left ureteroscopy with laser lithotripsy, stone basketing, stent placement) I have reviewed the history and physical and performed a pertinent physical examination on my patient. No changes have occurred unless specified. Time Spent With Patient Time: Total time managing care of this patient today ____ minutes.
--- NOTE | 2022-09-19 16:10 | W.PM.OPN ---
Operative Note Operative Note Date of Service: 09/19/22 Narrative: PreOperative Diagnosis: left distal ureter stone Post Operative Diagnosis: left distal ureteric stones Procedure: - cystoscopy, removal left indwelling ureteric stent, left retrograde - left ureteroscopy, laser lithotripsy, stone basketing Surgeon: Dr Tushar Ramirez Anesthesia: General Indications for procedure: distal left ureteric stone. Stent placed 2 weeks ago. At that point in time had elevated white count with possible UTI. Treated with antibiotics. This is resolved. Have definitive stone Procedure. Procedure: After informed consent was verified the patient was brought to the operating room and placed in a supine position. Anesthesia was administered per protocol. The patient was placed in a modified dorsal lithotomy position and prepped and draped in a sterile fashion. Safety pause time-out and side of surgery were confirmed. Images were available for review. Antibiotic administration confirmed. A 22 Telugu cystoscope was inserted per urethra. The urethra was without aabnormality. The bladder was normal in its entirety. Stent emerging from left ureteric orifice. A Sensor guidewire was placed up to the level of the renal pelvis under fluoroscopy. Stent was removed. Retrograde evaluation performed. Filling defects seen mid distal ureter. The semi rigid ureteral scope was placed alongside the Sensor guidewire. Stone was encountered mid distal left ureter.. Using a 365 micro holmium laser fiber the stone was broken into small pieces using a combination of hammer and dusting techiques. Stone fragments were removed from the ureter using a Sure catch basket. since he had prior stent decision made not to place a 2nd stent. Urine had been examined in minimal defects seen. The bladder was emptied. The patient tolerated the procedure well and was extubated in the operating room. They were transferred in stable condition to the recovery area. Pathology: stones Drains: No stent
[2022-09-19 16:20] VITALS: BP 105/53; PULSE 64; RESP 16; TEMP 36.6; O2SAT 97
[2022-09-19 16:25] VITALS: BP 118/66; PULSE 80; RESP 16; O2SAT 99
[2022-09-19 16:30] VITALS: BP 112/80; PULSE 81; RESP 16; O2SAT 99
[2022-09-19 16:35] VITALS: BP 150/46; PULSE 83; RESP 16; O2SAT 97
[2022-09-19] MEDS: Phenazopyridine HCL 100 MG TABLET PO (16:43)
[2022-09-19 16:50] VITALS: BP 141/91; PULSE 76; RESP 16; TEMP 36.4; O2SAT 97
[2022-09-27 12:08] LABS: Stone Source LEFT URETERAL STONE
== END 2022-09-19 16:54 | disposition home or self-care (01) ==
PROVIDERS: PCP Physician Assistant; Visit Provider Urology
PROC: (CPT 52353; principal; 2022-09-19 16:00)
DX: N20.1 Calculus of ureter (principal)
CPT/HCPCS: 52353; 52352; 82365; 88300; C1758; C1769; J1885; J1956; J2250; J2405; J3010; Q9967

== ENCOUNTER 2023-09-10 18:25 | Emergency (ER) | payer OTHER, SELFPAY ==
[2023-09-10 18:27] VITALS: BP 152/98; PULSE 69; RESP 20; TEMP 36; O2SAT 99; BMI 28.4
--- NOTE | 2023-09-10 20:49 | ED.SKABFB ---
HPI - Skin/Abscess/Foreign Bdy General Chief complaint: Skin/Abscess/Foreign Body Stated complaint: rash on upper body Time Seen by Provider: 09/10/23 20:47 Source: patient Mode of arrival: ambulatory Limitations: no limitations History of Present Illness HPI narrative: 23-year-old male who presents emergency department for evaluation of pruritic rash. Patient is started the rash started yesterday along his size and now has spread to his back and arms. States he has slight chest tightness but denied shortness of breath. He denied lip or tongue swelling, difficulty swallowing. Patient states he takes melatonin and another herbal supplement usually in a pill form but he recently started taking the supplements in a mixed fruit gummy version. He denied any viral symptoms such as fever, chills, cough, rhinorrhea, nausea, vomiting, myalgias arthralgias Related Data Previous Rx's Medication Instructions Recorded naproxen 500 mg tablet 500 mg PO BID PRN pain 7 days #14 09/19/22 tabs phenazopyridine 100 mg tablet 100 mg PO TID PRN Spasm 4 days #12 09/19/22 (Pyridium) tabs prednisone 20 mg tablet 60 mg (3 x 20 mg) PO DAILY 5 days 09/10/23 #15 tabs Allergies Allergy/AdvReac Type Severity Reaction Status Date / Time No Known Allergies Allergy Verified 09/10/23 18:30 [No Known Allergies*] PMFSH Past Medical History Medical History Patient denies medical problems Surgical History S/P cystoscopy with ureteral stent placement Family History Family History Father DMII (diabetes mellitus, type 2) Social History Social History Household Members: Family Housing: House Do you presently have visiting nurse or other home services: No Alcohol intake: current Comment: medicated with pydrium and tylenol for pain better per pt Patient Tobacco Use Status: Never used Tobacco Advance Directives: Yes Advance Directives on File: Yes Advance Directives Date on File: 09/05/22 service: No Current occupational status: unemployed Physical Exam Vital Signs: Vital Signs: Last Vital Signs Temp 96.8 F 09/10/23 18:27 Pulse 69 09/10/23 18:27 Resp 20 09/10/23 18:27 BP 152/98 H 09/10/23 18:27 Pulse Ox 99 09/10/23 18:27 O2 Del Method Room Air 09/10/23 18:27 BMI result Body Mass Index 28.4 Vital signs were normal except for elevated blood pressure of 152/98 Exam General: Awake, alert in no distress Head: Normocephalic, atraumatic EENT: PERRL, Lids normal, sclera normal, conjunctiva normal, nose normal , ears normal, throat without erythema or exudates Neck: Supple, no adenopathy, no trachea midline or C-spine tenderness Lung: breath sounds symmetric, no wheezing, rales or rhonchi Chest: symmetric movement, nontender Heart: regular rate and rhythm, normal S1, S2 no murmurs or rubs Abdomen: soft, non-tender, nondistended, normal bowel sounds Extremities: no deformities, moves all extremities symmetrically Skin: Patient has a rash on his back, bilateral flank area and arm, rashes and erythematous punctate rash with no urticaria, nonblanching Neuro: Awake, alert, oriented, normal speech Psych: Pleasant, cooperative Medical Decision Making Medical Decision Making MDM Narrative: 23-year-old male who presents emergency department for evaluation of a pruritic rash x1 day, the rash started on his back and flank area now has spread to his arms. He had chest tightness but no other concerning symptoms, no prodrome of viral illness. Patient did recently change his herbal supplements to a mixed Ramirez gummy and I suspect that this is the cause of his rash. The patient was given prednisone 60 mg orally. He was prescribed prednisone 60 mg once a day for 5 days and he was advised to take Benadryl 50 mg 3 to 4 times a day as needed for itchiness. She was advised to change his herbal supplements to a pill form Differential diagnosis includes but is not limited to allergic reaction, viral exanthem Prescription Management I considered prescription management with: Other (Prednisone) Discharge Plan Discharge Clinical Impression: Pruritic erythematous rash Allergic reaction Qualifiers: Encounter type: initial encounter Qualified Code(s): T78.40XA - Allergy, unspecified, initial encounter Patient Disposition: Home, Self-Care Instructions: General Allergic Reaction (ED) Additional Instructions: Your rash is consistent with an allergic reaction, most likely caused by the flavoring in the herbal gummies that your taking. You can continue to take your supplements but I would advise that you take them as a pill Take prednisone 20 mg pills, 3 pills once a day for 5 days. While you ?are taking prednisone, do not take any NSAIDs (Motrin, Advil, ibuprofen, Aleve, naproxen). Take Benadryl (diphenhydramine) 25 mg pills, 2 pills 4 times a day for the next 2-3 days to help reduce the swelling and itchiness in the area of your rash. This medication will make you sleepy. Do not drive or work while taking this medication. Follow-up with your doctor in 2 days. Please return to the emergency department if your symptoms get worse or if you develop any symptoms that are concerning to you. Prescriptions: New prednisone 20 mg tablet 60 mg PO DAILY 5 Days Qty: 15 0RF No Action phenazopyridine [Pyridium] 100 mg tablet 100 mg PO TID PRN (Reason: Spasm) 4 Days Qty: 12 0RF naproxen 500 mg tablet 500 mg PO BID PRN (Reason: pain) 7 Days Qty: 14 0RF
[2023-09-10] MEDS: predniSONE 20 MG TABLET 60 MG PO (21:19)
== END 2023-09-10 21:21 | disposition home or self-care (01) ==
PROVIDERS: Emergency Provider Emergency Medicine Emergency Medical Services; PCP Physician Assistant
DX: R21 Rash and other nonspecific skin eruption (principal); R07.89 Other chest pain
CPT/HCPCS: 99282; 99283